=== PATIENT | female | born 1970 | race Two or more races ===

== ENCOUNTER 2017-10-09 14:35 | Emergency (ER) | payer SELFPAY ==
[~2017-10-09] VITALS: Ht 154.9 cm; Wt 77.1 kg
[2017-10-09 15:03] VITALS: BP 133/60
[2017-10-09] MEDS ORDERED: CYCL10TA2 PO (15:41)
[2017-10-09] MEDS ORDERED: DICL50TA4 PO (15:41)
[2017-10-09] MEDS ORDERED: METH4TAB2 PO (15:41)
--- NOTE | 2017-10-09 15:43 | PHYS DOC ---
Past Medical History Past Medical History: No Pertinent History Past Surgical History: No Surgical History Alcohol Use: None Drug Use: None Adult General Chief Complaint Chief Complaint: [facility] HPI Patient is a 47 year old female with no significant medical history who presents today complaining of 5 out of 10 intermittent throbbing pain to the right shoulder, right upper extremity and right breast that has been going on for 8 months after she fell and landed on her shoulder in [place]. Patient states she was evaluated after the injury, had x-rays done, she states she does not remember results from the x-ray. Patient denies any new injuries. She states she took tramadol 8 months ago but does not have it anymore. Patient denies any chest pain, denies any shortness of breath. 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 Funeral Assistant line was used for [place] Review of Systems Review of Systems Constitutional: Denies fever or chills [] Eyes: Denies change in visual acuity, redness, or eye pain [] HENT: Denies nasal congestion or sore throat [] Respiratory: Denies cough or shortness of breath [] Cardiovascular: No additional information not addressed in HPI [] GI: Denies abdominal pain, nausea, vomiting, bloody stools or diarrhea [] : Denies dysuria or hematuria [] Musculoskeletal: Reports pain to the right shoulder, right upper extremity and right breast Integument: Denies rash or skin lesions [] Neurologic: Denies headache, focal weakness or sensory changes [] All other systems were reviewed and found to be within normal limits, except as documented in this note. Allergies Allergies Allergies Coded Allergies Type Severity Reaction Last Updated Verified No Known Drug Allergies 10/09/17 No Physical Exam Physical Exam Constitutional: Well developed, well nourished, no acute distress, non-toxic appearance. [] HENT: Normocephalic, atraumatic, bilateral external ears normal, oropharynx moist, no oral exudates, nose normal. [] Eyes: PERRLA, EOMI, conjunctiva normal, no discharge. [] Neck: Normal range of motion, no tenderness, supple, no stridor. [] Cardiovascular:Heart rate regular rhythm, no murmur [] Lungs & Thorax: Bilateral breath sounds clear to auscultation [] Abdomen: Bowel sounds normal, soft, no tenderness, no masses, no pulsatile masses. [] Skin: Warm, dry, no erythema, no rash. [] Back: No tenderness, no CVA tenderness. [] Extremities: No tenderness, no cyanosis, no clubbing, ROM intact, no edema. [] Neurologic: Alert and oriented X 3, normal motor function, normal sensory function, no focal deficits noted. [] Psychologic: Affect normal, judgement normal, mood normal. [] Current Patient Data Vital Signs Vital Signs Date Time Temp Pulse Resp B/P (MAP) Pulse Ox O2 Delivery O2 Flow Rate FiO2 10/09/17 15:03 98.7 73 16 133/60 (84) 98 Room Air 98.7 EKG EKG [] Radiology/Procedures Radiology/Procedures [] Course & Med Decision Making Course & Med Decision Making Pertinent Labs and Imaging studies reviewed. (See chart for details) This is a 47-year-old female patient presented to the ED today with musculoskeletal pain that began 8 months ago after she fell. She had x-rays done in when she fell. Does not have anything for pain at home. Was given prescription for diclofenac and cyclobenzaprine. Also given prescription for Medrol Dosepak. Provided PCP for follow-up. Dragon Disclaimer Dragon Disclaimer This electronic medical record was generated, in whole or in part, using a voice recognition dictation system. Departure Departure Impression: Primary Impression: Fall Additional Impression: Musculoskeletal pain Disposition: 01 HOME, SELF-CARE Condition: STABLE Referrals: NO PCP (PCP) JEFFERY LILLY MD follow up in one week Patient Instructions: Musculoskeletal Pain Additional Instructions: You were evaluated in the emergency room for musculoskeletal pain related to your injury 8 months ago. Follow-up with the provided doctor in 1-2 weeks. Ice and elevate the affected extremity. Take the prescribed medications as ordered. Come back to the ED at any point symptoms worsen. Scripts Cyclobenzaprine Hcl (CYCLOBENZAPRINE HCL) 10 Mg Tablet 1 TAB PO TID, #30 TAB Prov: TOSHIA SANDERS APRN 10/09/17 Diclofenac Sodium (DICLOFENAC SODIUM) 50 Mg Tablet.dr 1 TAB PO BID, #20 TAB 0 Refills Prov: TIANAUNGTOSHIA Henriquez BUSINESS CONTROL SPECIALIST 10/09/17 Methylprednisolone (MEDROL) 4 Mg Tab.ds.pk 1 PKG PO UD, #1 PKG Prov: TOSHIA SANDERS BUSINESS CONTROL SPECIALIST 10/09/17 Problem Qualifiers Primary Impression: Fall Encounter type: initial encounter Qualified Codes: W19.XXXA - Unspecified fall, initial encounter TOSHIA SANDERS BUSINESS CONTROL SPECIALIST Oct 09, 2017 15:43
== END 2017-10-09 16:07 | disposition home or self-care (01) ==
LOC: ER 14:35
DX: G89.11 Acute pain due to trauma (principal); M25.511 Pain in right shoulder; W19.XXXA Unspecified fall, initial encounter; Y93.89 Activity, other specified; Y92.89 Other specified places as the place of occurrence of the external cause; Y99.8 Other external cause status
CPT/HCPCS: 99283

== ENCOUNTER 2018-04-08 17:47 | Emergency (ER) | payer OTHER ==
[~2018-04-08] VITALS: Ht 157.5 cm; Wt 77.1 kg
[~2018-04-08 17:47] MED LIST: CYCL10TA2 PO; DICL50TA4 PO; METH4TAB2 PO
[2018-04-08 19:00] VITALS: BP 177/84
--- NOTE | 2018-04-08 20:35 | RAD ---
Indication: Left thumb pain of unknown injury. TECHNIQUE: AP hand and 2 views of the thumb COMPARISON: None FINDINGS/ impression: No acute fracture or dislocation. No arthritis. Electronically signed by: Richie Martinez DO (04/08/2018 8:32 PM) [facility]
[2018-04-08] MEDS ORDERED: DICL50TA2 PO (20:53)
--- NOTE | 2018-04-08 20:53 | PHYS DOC ---
Past Medical History Past Medical History: No Pertinent History (TOSHIA SANDERS APRN) Past Surgical History: No Surgical History (TOSHIA SANDERS APRN) Alcohol Use: None Drug Use: None (TOSHIA SANDERS APRN) Adult General Chief Complaint Chief Complaint: THUMB HPI HPI Patient is a 47 year old female with no significant medical history who presents to the ED today complaining of mild left thumb pain that began today. 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 Patient states the pain is worse when she touches items with the finger. Patient is right-handed. Die Assembler line was used for Sinhala (TOSHIA SANDERS APRN) Review of Systems Review of Systems Constitutional: Denies fever or chills [] Musculoskeletal: Reports left thumb pain Integument: Denies rash or skin lesions [] Neurologic: Denies headache, focal weakness or sensory changes [] All other systems were reviewed and found to be within normal limits, except as documented in this note. (TOSHIA SANDERS APRN) Allergies Allergies Allergies Coded Allergies Type Severity Reaction Last Updated Verified No Known Drug Allergies 10/09/17 No (SHIAR PORTER MD) Physical Exam Physical Exam Constitutional: Well developed, well nourished, no acute distress, non-toxic appearance. [] Skin: Warm, dry, no erythema, no rash. [] Back: No tenderness, no CVA tenderness. [] Extremities: Left thumb with no obvious deformity. Slight tenderness on the lateral aspect of the thumb distal end. Full range of motion to the left thumb. Adequate radius sensation to the left thumb. +2 left radial pulse. Cap refill less than 2 seconds the left thumb. Neurologic: Alert and oriented X 3, normal motor function, normal sensory function, no focal deficits noted. [] Psychologic: Affect normal, judgement normal, mood normal. [] (TOSHIA SANDERS APRN) Current Patient Data Vital Signs Vital Signs Date Time Temp Pulse Resp B/P (MAP) Pulse Ox O2 Delivery O2 Flow Rate FiO2 04/08/18 19:00 98.9 75 19 177/84 (115) 99 Room Air 98.9 (SHIRA PORTER MD) EKG EKG [] (TOSHIA SANDERS APRN) Radiology/Procedures Radiology/Procedures [] (TOSHIA SANDERS APRN) Course & Med Decision Making Course & Med Decision Making Pertinent Labs and Imaging studies reviewed. 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 Porter are negative for any acute findings. Ice elevation encouraged. Given prescription for diclofenac. (TOSHIA SANDERS APRN) Course & Med Decision Making Staff Physician Addendum: I was working in the ER during the course of this patient's visit. I was available for consultation as needed, but I was not directly involved in the care of this patient. (SHIRA PORTER MD) Dragon Disclaimer Dragon Disclaimer This electronic medical record was generated, in whole or in part, using a voice recognition dictation system. (TOSHIA SANDERS APRN) Departure Departure Impression: Primary Impression: Contusion of left thumb Disposition: HOME, SELF-CARE Condition: STABLE Referrals: NO PCP (PCP) SEAMUS PERKINS MD follow up in 2 week Patient Instructions: Contusion, [id number] Additional Instructions: You were evaluated in the emergency room and we highly recommend you establish care with a primary care doctor. Come back to the ED at any point symptoms worsen. Scripts Diclofenac Potassium (DICLOFENAC POTASSIUM) 50 Mg Tablet 1 TAB PO BID, #30 TAB 0 Refills Prov: TOSHIA SANDERS APRN 04/08/18 Problem Qualifiers Primary Impression: Contusion of left thumb Encounter type: initial encounter Damage to nail status: without damage Qualified Codes: S60.012A - Contusion of left thumb without damage to nail, initial encounter TOSHIA SANDERS APRN Apr 08, 2018 20:53 SHIRA PORTER MD Apr 09, 2018 04:53
== END 2018-04-08 21:15 | disposition home or self-care (01) ==
LOC: ER 17:47
DX: S60.012A Contusion of left thumb without damage to nail, initial encounter (principal); X58.XXXA Exposure to other specified factors, initial encounter; Y93.E9 Activity, other interior property and clothing maintenance; Y93.E5 Activity, floor mopping and cleaning; Y92.091 Bathroom in other non-institutional residence as the place of occurrence of the external cause; Y99.0 Civilian activity done for income or pay
CPT/HCPCS: 73140; 99283

== ENCOUNTER 2018-08-28 15:11 | Emergency (ER) | payer OTHER ==
[~2018-08-28] VITALS: Ht 154.9 cm; Wt 89.8 kg
[~2018-08-28 15:11] MED LIST changes: +DICL50TA2 PO
[2018-08-28 16:00] VITALS: BP 182/81
[2018-08-28] MEDS ORDERED: METH4TAB2 PO (17:03)
[2018-08-28] MEDS ORDERED: HYDR-3164 PO (17:03)
[2018-08-28] MEDS ORDERED: IBUP-1007 PO (17:03)
--- NOTE | 2018-08-28 17:04 | PHYS DOC ---
Past Medical History Past Medical History: No Pertinent History Past Surgical History: No Surgical History Alcohol Use: None Drug Use: None Adult General Chief Complaint Chief Complaint: THUMB [facility] HPI Patient is a 48 year old female who presents with the last 6 months patient has had numbness and tingling and sharp shooting pain radiates from her left fourth and fifth finger up her arm into her shoulder and into her breast. Review of Systems Review of Systems Constitutional: Denies fever or chills [] Eyes: Denies change in visual acuity, redness, or eye pain [] HENT: Denies nasal congestion or sore throat [] Respiratory: Denies cough or shortness of breath [] Cardiovascular: No additional information not addressed in HPI [] GI: Denies abdominal pain, nausea, vomiting, bloody stools or diarrhea [] : Denies dysuria or hematuria [] Musculoskeletal:Left 4th and 5th fingers up arm in to left breast. Denies back pain or joint pain [] Integument: Denies rash or skin lesions [] Neurologic: Denies headache, focal weakness or sensory changes [] Endocrine: Denies polyuria or polydipsia [] All other systems were reviewed and found to be within normal limits, except as documented in this note. Allergies Allergies Allergies Coded Allergies Type Severity Reaction Last Updated Verified No Known Drug Allergies 10/09/17 No Physical Exam Physical Exam Constitutional: Well developed, well nourished, no acute distress, non-toxic appearance. [] HENT: Normocephalic, atraumatic, bilateral external ears normal, oropharynx moist, no oral exudates, nose normal. [] Eyes: PERRLA, EOMI, conjunctiva normal, no discharge. [] Neck: Normal range of motion, no tenderness, supple, no stridor. [] Cardiovascular:Heart rate regular rhythm, no murmur [] Lungs & Thorax: Bilateral breath sounds clear to auscultation [] Abdomen: Bowel sounds normal, soft, no tenderness, no masses, no pulsatile masses. [] Skin: Warm, dry, no erythema, no rash. [] Back: No tenderness, no CVA tenderness. [] Extremities: Left hand on ulnar side up arm into left breast tenderness, no cyanosis, no clubbing, ROM intact, no edema. [] Neurologic: Alert and oriented X 3, normal motor function, normal sensory function, no focal deficits noted. [] Psychologic: Affect normal, judgement normal, mood normal. [] EKG EKG [] Radiology/Procedures Radiology/Procedures [] Course & Med Decision Making Course & Med Decision Making Patient is a 48 year old female who presents with the last 6 months patient has had numbness and tingling and sharp shooting pain radiates from her left fourth and fifth finger up her arm into her shoulder and into her breast. Patient has lived Tinel's sign. Patient has tenderness from palm on the ulnar side of the ulnar arm up into the ulnar side of the humerus and into the shoulder. Patient denies chest pain, shortness of breath, nausea vomiting, fever. 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 Patient rates her pain 8 out of 10. Patient states at times the pain is burning and stabbing. Patient states she has not followed up with a primary care provider. Has a pinched nerve and carpal tunnel. Patient is given pain medication and a Medrol dose pack and is to follow up with a primary care provider. Dragon Disclaimer Dragon Disclaimer This electronic medical record was generated, in whole or in part, using a voice recognition dictation system. Departure Departure Impression: Primary Impression: Musculoskeletal pain Disposition: HOME, SELF-CARE Condition: STABLE Referrals: NO PCP (PCP) Patient Instructions: Carpal Tunnel Syndrome Additional Instructions: Follow up with a doctor as soon as possible. Take medication as prescribed. Scripts Ibuprofen (IBUPROFEN) 600 Mg Tablet 600 MG PO PRN Q6HRS PRN for INFLAMMATION, #20 TAB Prov: JAYSON QUINTANILLA APRN 08/28/18 Methylprednisolone (MEDROL) 4 Mg Tab.ds.pk 1 PKG PO UD, #1 PKG Prov: JAYSON QUINTANILLA APRN 08/28/18 Hydrocodone/Apap 5-325 (NORCO 5-325 TABLET) 1 Each Tablet 1 TAB PO PRN Q6HRS PRN for PAIN, #10 TAB 0 Refills Prov: JAYSON QUINTANILLA APRN 08/28/18 JAYSON QUINTANILLA APRN Aug 28, 2018 17:04
== END 2018-08-28 17:15 | disposition home or self-care (01) ==
LOC: ER 15:11
DX: M79.645 Pain in left finger(s) (principal); R20.0 Anesthesia of skin
CPT/HCPCS: 99283

== ENCOUNTER 2018-11-16 19:38 | Emergency (ER) | payer OTHER ==
[~2018-11-16] VITALS: Ht 152.4 cm; Wt 88.5 kg
[~2018-11-16 19:38] MED LIST changes: +HYDR-3164 PO; +IBUP-1007 PO
[2018-11-16] MEDS ORDERED: IV NORMAL SALINE 1000ML BAG 1,000 ML IV ONE (20:30)
--- NOTE | 2018-11-16 20:32 | PHYS DOC ---
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 Patient states it feels tight like a knot. Patient rates her pain a 10 out 10. Review of Systems Review of Systems Musculoskeletal: bilateral low back pain or joint pain [] All other systems were reviewed and found to be within normal limits, except as documented in this note. Current Medications Current Medications Current Medications Medications (Trade) Dose Ordered Sig/Jv Start Time Stop Time Status Last Admin Dose Admin Ketorolac Tromethamine (Toradol 30mg Vial) 30 mg 1X ONCE 11/16/18 20:45 11/16/18 20:46 DC Sodium Chloride 1,000 ml @ 1,000 mls/hr 1X ONCE 11/16/18 20:30 11/16/18 21:29 Allergies Allergies Allergies Coded Allergies Type Severity Reaction Last Updated Verified No Known Drug Allergies 10/09/17 No Physical Exam Physical Exam Constitutional: Well developed, well nourished, no acute distress, non-toxic appearance. [] Cardiovascular:Heart rate regular rhythm, no murmur [] Lungs & Thorax: Bilateral breath sounds clear to auscultation [] Abdomen: Bowel sounds normal, soft, no tenderness, no masses, no pulsatile masses. [] Skin: Warm, dry, no erythema, no rash. [] Back: Bilateral low tenderness, Right CVA tenderness. [] Extremities: No tenderness, no cyanosis, no clubbing, ROM intact, no edema. [] Neurologic: Alert and oriented X 3, normal motor function, normal sensory f unction, no focal deficits noted. [] Psychologic: Affect normal, judgement normal, mood normal. [] Current Patient Data Vital Signs Vital Signs Date Time Temp Pulse Resp B/P (MAP) Pulse Ox O2 Delivery O2 Flow Rate FiO2 11/16/18 20:32 98.7 87 16 158/70 (99) 98 Room Air 98.7 Lab Values Laboratory Tests Test 11/16/18 19:44 11/16/18 20:17 11/16/18 20:24 Urine Collection Type Unknown Urine Color Yellow Urine Clarity Clear Urine pH 5.5 Urine Specific [place] 1.020 Urine Protein Negative mg/dL (NEG-TRACE) Urine Glucose (UA) Negative mg/dL (NEG) Urine Ketones (Stick) Negative mg/dL (NEG) Urine Blood Negative (NEG) Urine Nitrite Negative (NEG) Urine Bilirubin Negative (NEG) Urine Urobilinogen Dipstick 1.0 mg/dL (0.2 mg/dL) Urine Leukocyte Esterase Negative (NEG) Urine RBC 0 /HPF (0-2) Urine WBC Occ /HPF (0-4) Urine Squamous Epithelial Cells Few /LPF Urine Bacteria 0 /HPF (0-FEW) Urine Mucus Marked /LPF White Blood Count 9.0 x10^3/uL (4.0-11.0) Red Blood Count 4.44 x10^6/uL (3.50-5.40) Hemoglobin 13.0 g/dL (12.0-15.5) Hematocrit 39.0 % (36.0-47.0) Mean Corpuscular Volume 88 fL (79-100) Mean Corpuscular Hemoglobin 29 pg (25-35) Mean Corpuscular Hemoglobin Concent 33 g/dL (31-37) Red Cell Distribution Width 14.7 % (11.5-14.5) H Platelet Count 223 x10^3/uL (140-400) Neutrophils (%) (Auto) 47 % (31-73) Lymphocytes (%) (Auto) 42 % (24-48) Monocytes (%) (Auto) 9 % (0-9) Eosinophils (%) (Auto) 2 % (0-3) Basophils (%) (Auto) 1 % (0-3) Neutrophils # (Auto) 4.2 x10^3/uL (1.8-7.7) Lymphocytes # (Auto) 3.8 x10^3/uL (1.0-4.8) Monocytes # (Auto) 0.8 x10^3/uL (0.0-1.1) Eosinophils # (Auto) 0.2 x10^3/uL (0.0-0.7) Basophils # (Auto) 0.1 x10^3/uL (0.0-0.2) Sodium Level 143 mmol/L (136-145) Potassium Level 3.9 mmol/L (3.5-5.1) Chloride Level 106 mmol/L (98-107) Carbon Dioxide Level 31 mmol/L (21-32) Anion Gap 6 (6-14) Blood Urea Nitrogen 15 mg/dL (7-20) Creatinine 1.0 mg/dL (0.6-1.0) Estimated GFR (Cockcroft-Gault) 58.9 BUN/Creatinine Ratio 15 (6-20) Glucose Level 133 mg/dL (70-99) H Calcium Level 8.9 mg/dL (8.5-10.1) Total Bilirubin 0.3 mg/dL (0.2-1.0) Aspartate Amino Transferase (AST) 21 U/L (15-37) Alanine Aminotransferase (ALT) 24 U/L (14-59) Alkaline Phosphatase 73 U/L (46-116) Total Protein 7.5 g/dL (6.4-8.2) Albumin 3.5 g/dL (3.4-5.0) Albumin/Globulin Ratio 0.9 (1.0-1.7) L POC Urine HCG, Qualitative Hcg negative (Negative) Laboratory Tests 11/16/18 20:17 Laboratory Tests 11/16/18 20:17 EKG EKG [] Radiology/Procedures Radiology/Procedures [] Course & Med Decision Making Course & Med Decision Making 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 Patient states it feels tight like a knot. Patient rates her pain a 10 out 10. Patient has tenderness to her bilateral lower back but has right CVA tenderness. Patient denies dysuria symptoms, nausea, vomiting, abdominal pain, fever or chest pain, shortness of air, dizziness, headache, numbness or tingling. No bony spinal tenderness. Pain worse with movement. Abdomen is soft and nontender. Afebrile. Skin pink warm and dry. Mucous membranes moist. Lungs are clear to auscultation all lobes. Ambulatory with a steady gait. No extremity weaknesses. Urinalysis is negative and there is no blood. Blood work unremarkable. 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 Patient will be treated with muscle relaxers and Ibuprofen. Dragon Disclaimer Dragon Disclaimer This electronic medical record was generated, in whole or in part, using a voice recognition dictation system. Departure Departure Impression: Primary Impression: Low back pain Disposition: HOME, SELF-CARE Condition: STABLE Referrals: NO PCP (PCP) Patient Instructions: Low Back Strain with Rehab-Sports[facility] Additional Instructions: Follow up with primary care provider. Use heating pad to help with pain. Scripts Ibuprofen (IBUPROFEN) 600 Mg Tablet 600 MG PO PRN Q6HRS PRN for INFLAMMATION, #20 TAB Prov: JAYSON QUINTANILLA APRN 11/16/18 Orphenadrine Citrate (ORPHENADRINE CITRATE) 100 Mg Tablet.er 1 TAB PO BID, #20 TAB Prov: JAYSON QUINTANILLA APRN 11/16/18 Problem Qualifiers Primary Impression: Low back pain Chronicity: acute Back pain laterality: bilateral Sciatica presence: without sciatica Qualified Codes: M54.5 - Low back pain JAYSON QUINTANILLA APRN Nov 16, 2018 20:32
[2018-11-16 20:40] LABS: BASO # 0.1 x10^3/uL (0.0-0.2); BASO % 1 % (0-3); EOS # 0.2 x10^3/uL (0.0-0.7); EOS % 2 % (0-3); LYMPH # 3.8 x10^3/uL (1.0-4.8); LYMPH % 42 % (24-48); MEAN CORPUSCULAR HEMOGLOBIN 29 pg (25-35); MEAN CORPUSCULAR HGB CONC 33 g/dL (31-37); MEAN CORPUSCULAR VOLUME 88 fL (79-100); MONO # 0.8 x10^3/uL (0.0-1.1); MONO % 9 % (0-9); NEUT # 4.2 x10^3/uL (1.8-7.7); NEUT % 47 % (31-73); PLATELET COUNT 223 x10^3/uL (140-400); RED BLOOD COUNT 4.44 x10^6/uL (3.50-5.40); RED CELL DISTRIBUTION WIDTH 14.7 % (11.5-14.5)
[2018-11-16 20:41] LABS: BILIRUBIN,URINE NEGATIVE (NEG); CLARITY,URINE CLEAR; COLOR,URINE YELLOW; NITRITE,URINE NEGATIVE (NEG); PH,URINE 5.5; PROTEIN,URINE NEGATIVE (NEG-TRACE)
[2018-11-16] MEDS ORDERED: KETOROLAC 30 MG/ML VIAL. IV ONE (20:45)
[2018-11-16 20:48] LABS: BACTERIA,URINE 0 /HPF (0-FEW); RBC,URINE 0 /HPF (0-2); SQUAMOUS EPITHELIAL CELL,UR FEW /LPF; WBC,URINE OCC /HPF (0-4)
[2018-11-16 20:57] LABS: CALCIUM 8.9 mg/dL (8.5-10.1); GFR 58.9; POTASSIUM 3.9 mmol/L (3.5-5.1)
[2018-11-16 21:02] LABS: ALBUMIN 3.5 g/dL (3.4-5.0); ALBUMIN/GLOBULIN RATIO 0.9 (1.0-1.7); TOTAL BILIRUBIN 0.3 mg/dL (0.2-1.0); TOTAL PROTEIN 7.5 g/dL (6.4-8.2)
[2018-11-16] MEDS ORDERED: ORPH100T PO (21:11)
[2018-11-16] MEDS ORDERED: IBUP-1007 PO (21:11)
[2018-11-16 21:15] VITALS: BP 121/59
== END 2018-11-16 21:52 | disposition home or self-care (01) ==
LOC: ER 19:38
DX: M54.5 Low back pain (principal)
CPT/HCPCS: 36415; 80053; 81001; 81025; 85025; 96374; 99284; J1885; J7030

== ENCOUNTER 2020-04-18 22:18 | Emergency (ER) | payer SELFPAY ==
[~2020-04-18] VITALS: Ht 152.4 cm; Wt 88.1 kg
[~2020-04-18 22:18] MED LIST changes: +ORPH100T PO
[2020-04-18 23:00] LABS: BASO # 0.1 x10^3/uL (0.0-0.2); BASO % 1 % (0-3); EOS # 0.2 x10^3/uL (0.0-0.7); EOS % 2 % (0-3); HEMATOCRIT 40.1 % (36.0-47.0); HEMOGLOBIN 13.4 g/dL (12.0-15.5); LYMPH # 2.8 x10^3/uL (1.0-4.8); LYMPH % 33 % (24-48); MEAN CORPUSCULAR HEMOGLOBIN 29 pg (25-35); MEAN CORPUSCULAR HGB CONC 33 g/dL (31-37); MEAN CORPUSCULAR VOLUME 86 fL (79-100); MONO # 0.8 x10^3/uL (0.0-1.1); MONO % 9 % (0-9); NEUT # 4.8 x10^3/uL (1.8-7.7); NEUT % 56 % (31-73); PLATELET COUNT 220 x10^3/uL (140-400); RED BLOOD COUNT 4.69 x10^6/uL (3.50-5.40); RED CELL DISTRIBUTION WIDTH 14.1 % (11.5-14.5); WHITE BLOOD COUNT 8.6 x10^3/uL (4.0-11.0)
[2020-04-18] MEDS ORDERED: IV NORMAL SALINE 1000ML BAG 1,000 ML IV SCH (23:00)
[2020-04-18] MEDS ORDERED: ACETAMINOPHEN 500 MG TABLET PO ONE (23:00)
[2020-04-18 23:10] LABS: CALCIUM 8.9 mg/dL (8.5-10.1); GFR 58.7; POTASSIUM 3.8 mmol/L (3.5-5.1)
--- NOTE | 2020-04-18 23:10 | EKG ---
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
[2020-04-18 23:16] LABS: ALBUMIN 3.4 g/dL (3.4-5.0); ALBUMIN/GLOBULIN RATIO 0.8 (1.0-1.7); MAGNESIUM 2.1 mg/dL (1.8-2.4); TOTAL BILIRUBIN 0.3 mg/dL (0.2-1.0); TOTAL PROTEIN 7.6 g/dL (6.4-8.2)
--- NOTE | 2020-04-19 00:19 | RAD ---
XR CHEST 2V INDICATION: CHEST PAIN COMPARISON STUDY: None. FINDINGS: Lungs: Normal lung volume. No pulmonary mass or consolidation. The tracheobronchial tree and hilar st ructures are normal. Pleura: No pleural effusion or pneumothorax. Heart and Mediastinum: The cardiomediastinal silhouette is normal. The great vessels of the thorax ar e normal. Bones and Soft Tissues: The bones and soft tissues are within normal limits. IMPRESSION: No acute cardiopulmonary process. Electronically signed by: Hebert Smith MD (04/19/2020 12:17 AM) [facility]
--- NOTE | 2020-04-19 00:26 | PHYS DOC ---
Past Medical History Past Medical History: No Pertinent History Past Surgical History: No Surgical History Smoking Status: Never Smoker Alcohol Use: None Drug Use: None Adult General Chief Complaint Chief Complaint: MULTIPLE COMPLAINTS HPI HPI Patient is a 49 year old female who denies any known past or history now presenting emergency department complaint of right-sided headache and chest pain . Patient states that over the last 24 hours she developed worsening sensation of right throbbing headache which radiates into the right face and into the right neck. Patient states that is mild but she has had symptoms like this before. Patient also states over the last 5 days she had mild intermittent episodes of left anterior chest pain without radiation. Denies any associated nausea, vomiting, fever, chills, dizziness or lightheadedness Review of Systems Review of Systems Constitutional: Denies fever or chills [] Eyes: Denies change in visual acuity, redness, or eye pain [] HENT: Denies nasal congestion or sore throat [] Respiratory: Denies cough or shortness of breath [] Cardiovascular: No additional information not addressed in HPI [] GI: Denies abdominal pain, nausea, vomiting, bloody stools or diarrhea [] : Denies dysuria or hematuria [] Musculoskeletal: Denies back pain or joint pain [] Integument: Denies rash or skin lesions [] Neurologic: Denies headache, focal weakness or sensory changes [] Endocrine: Denies polyuria or polydipsia [] All other systems were reviewed and found to be within normal limits, except as documented in this note. Current Medications Current Medications Current Medications Medications (Trade) Dose Ordered Sig/[facility] Start Time Stop Time Status Last Admin Dose Admin Acetaminophen (Tylenol) 1,000 mg 1X ONCE 04/18/20 23:00 04/18/20 23:01 DC 04/18/20 23:03 1,000 MG Sodium Chloride 1,000 ml @ 1,000 mls/hr Q1H 04/18/20 23:00 04/18/20 23:59 DC 04/18/20 23:04 1,000 MLS/HR Allergies Allergies Allergies Coded Allergies Type Severity Reaction Last Updated Verified No Known Drug Allergies 10/09/17 No Physical Exam Physical Exam Constitutional: Well developed, well nourished, no acute distress, non-toxic appearance. [] HENT: Normocephalic, atraumatic, bilateral external ears normal, oropharynx moist, no oral exudates, nose normal. [] Eyes: PERRLA, EOMI, conjunctiva normal, no discharge. [] Neck: Normal range of motion, no tenderness, supple, no stridor. [] Cardiovascular:Heart rate regular rhythm, no murmur [] Lungs & Thorax: Bilateral breath sounds clear to auscultation [] Abdomen: Bowel sounds normal, soft, no tenderness, no masses, no pulsatile masses. [] Skin: Warm, dry, no erythema, no rash. [] Back: No tenderness, no CVA tenderness. [] Extremities: No tenderness, no cyanosis, no clubbing, ROM intact, no edema. [] Neurologic: Alert and oriented X 3, normal motor function, normal sensory function, no focal deficits noted. [] Psychologic: Affect normal, judgement normal, mood normal. [] Current Patient Data Vital Signs Vital Signs Date Time Temp Pulse Resp B/P (MAP) Pulse Ox O2 Delivery O2 Flow Rate FiO2 04/18/20 22:35 97.2 90 18 189/79 (115) 99 Room Air 97.2 Lab Values Laboratory Tests Test 04/18/20 22:50 White Blood Count 8.6 x10^3/uL (4.0-11.0) Red Blood Count 4.69 x10^6/uL (3.50-5.40) Hemoglobin 13.4 g/dL (12.0-15.5) Hematocrit 40.1 % (36.0-47.0) Mean Corpuscular Volume 86 fL (79-100) Mean Corpuscular Hemoglobin 29 pg (25-35) Mean Corpuscular Hemoglobin Concent 33 g/dL (31-37) Red Cell Distribution Width 14.1 % (11.5-14.5) Platelet Count 220 x10^3/uL (140-400) Neutrophils (%) (Auto) 56 % (31-73) Lymphocytes (%) (Auto) 33 % (24-48) Monocytes (%) (Auto) 9 % (0-9) Eosinophils (%) (Auto) 2 % (0-3) Basophils (%) (Auto) 1 % (0-3) Neutrophils # (Auto) 4.8 x10^3/uL (1.8-7.7) Lymphocytes # (Auto) 2.8 x10^3/uL (1.0-4.8) Monocytes # (Auto) 0.8 x10^3/uL (0.0-1.1) Eosinophils # (Auto) 0.2 x10^3/uL (0.0-0.7) Basophils # (Auto) 0.1 x10^3/uL (0.0-0.2) Sodium Level 137 mmol/L (136-145) Potassium Level 3.8 mmol/L (3.5-5.1) Chloride Level 99 mmol/L (98-107) Carbon Dioxide Level 31 mmol/L (21-32) Anion Gap 7 (6-14) Blood Urea Nitrogen 15 mg/dL (7-20) Creatinine 1.0 mg/dL (0.6-1.0) Estimated GFR (Cockcroft-Gault) 58.7 BUN/Creatinine Ratio 15 (6-20) Glucose Level 213 mg/dL (70-99) H Calcium Level 8.9 mg/dL (8.5-10.1) Magnesium Level 2.1 mg/dL (1.8-2.4) Total Bilirubin 0.3 mg/dL (0.2-1.0) Aspartate Amino Transferase (AST) 25 U/L (15-37) Alanine Aminotransferase (ALT) 39 U/L (14-59) Alkaline Phosphatase 103 U/L (46-116) Troponin I Quantitative < 0.017 ng/mL (0.000-0.055) Total Protein 7.6 g/dL (6.4-8.2) Albumin 3.4 g/dL (3.4-5.0) Albumin/Globulin Ratio 0.8 (1.0-1.7) L Laboratory Tests 04/18/20 22:50 Laboratory Tests 04/18/20 22:50 EKG EKG [] Radiology/Procedures Radiology/Procedures [] Course & Med Decision Making Course & Med Decision Making Pertinent Labs and Imaging studies reviewed. (See chart for details) 49F presenting with nonspecific right-sided headache and complaints of chronic chest pain. Will obtain an ACS work-up and treat symptomatically. No indication of subarachnoid hemorrhage. Indication for CT scan at this Dragon Disclaimer Dragon Disclaimer This electronic medical record was generated, in whole or in part, using a voice recognition dictation system. Departure Departure Impression: Primary Impression: Headache Disposition: 01 DC HOME SELF CARE/HOMELESS Condition: GOOD Referrals: NO PCP (PCP) Patient Instructions: General Headache Without Cause, [id number] Additional Instructions: EMERGENCY DEPARTMENT GENERAL DISCHARGE INSTRUCTIONS Thank you for coming to [facility] Emergency Department (ED) today and trusting us with you care. We trust that you had a positive experience in our Emergency Department. If you wish to speak to the department management, you may call the Director at [phone]. YOUR FOLLOW UP INSTRUCTIONS ARE FOLLOWS: 1. Do you have a private Doctor? If you do not have a private doctor, please ask for a resource list of physicians or clinics that may be able to assist you with follow up care. 2. The Emergency Physicain has interpreted your x-rays. The X-Ray specialist will also review them. If there is a change in the findings, you will be notified in 48 hours when at all possible. 3. A lab test or culture has been done, your results will be reviewed and you will be notified if you need a change in treatment. ADDITIONAL INSTRUCTIONS AND INFORMATION: 1. Your care today has been supervised by a physician who is specially trained in emergency care. Many problems require more than one evaluation for a complete diagnosis and treatment. We recommend that you schedule your follow up appointment as recommended to ensure complete treatment of you illness or injury. If you are unable to obtain follow up care and continue to have a problem, or if your condition worsens, we recommend that you return to the ED. 2. We are not able to safely determine your condition over the phone nor are we able to give sound medical advice over the phone. For these safety reasons, if you call for medical advice we will ask you to come to the ED for further evaluation. 3. If you have any questions regarding these discharge instructions please call the ED at [phone]. SAFETY INFORMATION: In the interest of safety, wellness, and injury prevention; we encourage you to wear your sealbelt, if you smoke; quite smoking, and we encourage family to use a protective helmet for bicycling and other sporting events that present an increased risk for head injury. IF YOUR SYMPTOMS WORSEN OR NEW SYMPTOMS DEVELOP, OR YOU HAVE CONCERNS ABOUT YOUR CONDITION; OR IF YOUR CONDITION WORSENS WHILE YOU ARE WAITING FOR YOUR FOLLOW UP APPOINTMENT; EITHER CONTACT YOUR PRIMARY CARE DOCTOR, THE PHYSICIAN WHOSE NAME AND NUMBER YOU WERE GIVEN, OR RETURN TO THE ED IMMEDIATELY. RAFAEL ROWELL MD Apr 19, 2020 00:26
[2020-04-19 00:43] VITALS: BP 128/60
== END 2020-04-19 00:52 | disposition home or self-care (01) ==
LOC: ER 22:18
DX: R51.9 Headache, unspecified (principal); R07.89 Other chest pain; R20.2 Paresthesia of skin
CPT/HCPCS: 36415; 71046; 80053; 83735; 84484; 85025; 93005; 96360; 99285; J7030